=== PATIENT | female | born 1990 | race Caucasian/White ===

== ENCOUNTER 2017-12-08 07:12 | Emergency (ER) | payer OTHER ==
[~2017-12-08] VITALS: Ht 157.5 cm; Wt 59.1 kg
[2017-12-08 07:22] VITALS: BP 116/75; TEMP 98.5
[2017-12-08] MEDS ORDERED: PROAIR HFA0.09 MG/AC IH (07:24)
[2017-12-08] MEDS ORDERED: ADDERALL30 MG PO (07:24)
[2017-12-08 09:35] LABS: COLLECTION METHOD CLEAN CATCH
[2017-12-08 09:40] LABS: MUCOUS Present /lpf; PH 7 (5-8); SQUAMOUS EPITHELIAL 0-2 /hpf; URINE APPEARANCE Clear; URINE BACTERIA None Seen /hpf; URINE BILIRUBIN Negative (NEGATIVE); URINE BLOOD 2+ (NEGATIVE); URINE COLOR Yellow; URINE GLUCOSE Negative (NEGATIVE); URINE KETONE Negative (NEGATIVE); URINE LEUKOCYTE ESTERASE Negative (NEGATIVE); URINE NITRATE Negative (NEGATIVE); URINE PROTEIN(semi-quant) Negative (NEGATIVE); URINE RBC 0-2 /hpf
[2017-12-08] MEDS ORDERED: FLEXERIL5 MG PO (10:35)
[2017-12-08 10:55] VITALS: PULSE 87
== END 2017-12-08 10:55 | disposition home or self-care (01) ==
LOC: COL.ER 07:12
PROVIDERS: Nurse Practitioner Primary Care
DX: M54.5 Low back pain (principal); F12.90 Cannabis use, unspecified, uncomplicated; F17.200 Nicotine dependence, unspecified, uncomplicated
CPT/HCPCS: J1885

== ENCOUNTER 2018-04-20 12:53 | Emergency (ER) | payer OTHER ==
[~2018-04-20] VITALS: Ht 157.5 cm; Wt 59.1 kg
[~2018-04-20 12:53] MED LIST: ADDERALL30 MG PO; FLEXERIL5 MG PO; PROAIR HFA0.09 MG/AC IH
[2018-04-20 12:54] VITALS: TEMP 97.5
[2018-04-20 13:23] LABS: BASO % 0.5 % (0.0-2.0); EOS % 0.5 % (0-4.0); GRAN # 4.5 (1.4-6.5); HEMATOCRIT 44.1 % (37.0-47.0); HEMOGLOBIN 15.5 g/dl (12.5-16.0); LYMPH # 3.4 (1.2-3.4); LYMPH % 40.1 % (20.0-51.0); MEAN CELL VOLUME 87 fl (80.0-100.0); MEAN CORPUSCULAR HEMOGLOBIN 31 pg (27.0-31.0); MEAN CORPUSCULAR HGB CONC 35 g/dl (33.0-37.0); MEAN PLATELET VOLUME 11.2 fl (7.4-10.4); MONO # 0.5 (0.1-0.6); MONO % 5.7 % (1.7-9.3); PLATELET COUNT 244 K/mm3 (130-400); RED BLOOD COUNT 5.09 M/mm3 (4.10-5.30); REDCELL DISTRIBUTION WIDTH-CV 14.2 % (11.5-14.5)
[2018-04-20 13:33] LABS: BILIRUBIN,TOTAL 1.2 mg/dL (0.0-1.0); CALCIUM 10.6 mg/dL (8.4-10.2); CREATININE, serum 0.82 mg/dL (0.52-1.25); POTASSIUM 3.3 mmol/L (3.4-5.0); TOTAL PROTEIN 8.4 gm/dL (6.4-8.2)
[2018-04-20] MEDS ORDERED: BONINE25 MG PO (15:00)
[2018-04-20 15:07] VITALS: BP 141/88; PULSE 112
== END 2018-04-20 15:09 | disposition home or self-care (01) ==
LOC: COL.ER 12:53
PROVIDERS: Nurse Practitioner
DX: R42 Dizziness and giddiness (principal); R06.4 Hyperventilation; F17.290 Nicotine dependence, other tobacco product, uncomplicated; F12.90 Cannabis use, unspecified, uncomplicated
CPT/HCPCS: J2060; J7030